=== PATIENT | female | born 1995 | race African-American/Black ===

== ENCOUNTER 2018-02-05 15:49 | Emergency (ER) | payer BC ==
[~2018-02-05] VITALS: Ht 152.4 cm; Wt 57.7 kg
[~2018-02-05 15:49] MED LIST: FOCALIN XR5 MG PO; FOCALIN5 MG PO; HYDROCODON-ACE1 EAC7 PO
[2018-02-05 15:53] VITALS: Ht 152.4 cm; Wt 57.7 kg
[2018-02-05 16:34] LABS: APPEARANCE HAZY (CLEAR); BILIRUBIN NEGATIVE (NEGATIVE); COLOR YELLOW (YELLOW); GLUCOSE NEGATIVE (NEGATIVE); HCG URINE POSITIVE (NEGATIVE); KETONE NEGATIVE (NEGATIVE); NITRITE NEGATIVE (NEGATIVE); PH 7.5 (5.0-6.0); PROTEIN NEGATIVE (NEGATIVE); SPECIFIC GRAVITY 1.015 (1.005-1.020); UROBILINOGEN NORMAL (NORMAL)
[2018-02-05 16:43] LABS: AMORPHOUS SEDIMENT >1+ /lpf (NONE SEEN); BACTERIA FEW /hpf (NONE SEEN); EPITHELIAL CELLS OCC /hpf (0-5); GRANULAR CAST OCC /lpf (NONE SEEN); HYALINE CAST OCC /lpf (NONE SEEN); MUCUS >1+ /lpf (NONE SEEN); RED CELLS - URINE 0-5 /hpf (0-5); WHITE CELLS - URINE 0-5 /hpf (0-5)
[2018-02-05 17:25] LABS: BASOPHILS 0.1 % (0-2); EOSINOPHILS 1.2 % (0-7); HEMATOCRIT 32.5 % (36.0-48.0); HEMOGLOBIN 10.7 g/dL (12-16); IMMATURE GRANULOCYTES 0.1 % (0-5); LYMPHOCYTES 29.5 % (15-50); MCH 26.5 pg (26.0-34.0); MCHC 32.9 g/dL (31.0-37.0); MCV 80.4 fL (80.0-100.0); MEAN PLATELET VOLUME 11.4 fL (7.4-10.4); MONOCYTES 5.5 % (2-11); NEUTROPHILS 63.6 % (40-80); RBC 4.04 10x6/uL (4.00-5.40); WBC 6.7 10x3/uL (4.8-10.8)
[2018-02-05 17:26] LABS: PLATELET COUNT 212 10x3/uL (130-400)
[2018-02-05 17:52] LABS: ALBUMIN 2.6 g/dL (3.4-5.0); ALKALINE PHOSPHATASE 42 U/L (46-116); ALT (SGPT) 11 U/L (10-68); CALC OSMOLALITY 270 mosm/kg (275-300); CARBON DIOXIDE 26.8 mmol/L (21.0-32.0); CHLORIDE - SERUM 106 mmol/L (98-107); CREATININE - SERUM 0.6 mg/dL (0.6-1.3); POTASSIUM - SERUM 3.9 mmol/L (3.5-5.1); PROTEIN - SERUM 5.6 g/dL (6.4-8.2); SODIUM 138 mmol/L (136-145); UREA NITROGEN 4 mg/dL (7-18); eGFR NON AFRICAN AMERICAN > 90 mL/min (90-120)
[2018-02-05 18:01] LABS: GLUCOSE 70 mg/dL (74-106)
[2018-02-05 18:15] LABS: HCG - QUANTITATIVE (MATERNAL) 4641 mIU/mL
[2018-02-05 18:28] VITALS: BP 128/60
== END 2018-02-05 18:29 | disposition home or self-care (01) ==
LOC: D.ER 15:49
PROVIDERS: Family Medicine
DX: O26.892 Other specified pregnancy related conditions, second trimester (principal); Z3A.17 17 weeks gestation of pregnancy; R10.9 Unspecified abdominal pain

== ENCOUNTER 2019-10-28 02:51 | Observation (INO) | payer MEDICAID ==
[2019-10-28] VITALS (9 sets, daily range): BP systolic 93–122; BP diastolic 54–879; Ht 152.4 cm; Wt 54.5 kg
[~2019-10-28] VITALS: Ht 152.4 cm; Wt 54.5 kg
[2019-10-28 03:08] LABS: BASOPHILS 0.1 % (0-2); EOSINOPHILS 1.5 % (0-7); HEMOGLOBIN 12.3 g/dL (12-16); IMMATURE GRANULOCYTES 0.1 % (0-5); LYMPHOCYTES 55.4 % (15-50); MCH 26.3 pg (26.0-34.0); MCHC 32.4 g/dL (31.0-37.0); MCV 81.4 fL (80.0-100.0); MEAN PLATELET VOLUME 11.3 fL (7.4-10.4); MONOCYTES 8.9 % (2-11); PLATELET COUNT 255 10x3/uL (130-400); RBC 4.67 10x6/uL (4.00-5.40); RDW 15.5 % (11.5-14.5); WBC 7.2 10x3/uL (4.8-10.8)
[2019-10-28 03:17] LABS: CALC OSMOLALITY 271 mosm/kg (275-300); CALCIUM 9.1 mg/dL (8.5-10.1); CARBON DIOXIDE 23.7 mmol/L (21.0-32.0); CHLORIDE - SERUM 105 mmol/L (98-107); CREATININE - SERUM 0.9 mg/dL (0.6-1.3); GLUCOSE 92 mg/dL (74-106); POTASSIUM - SERUM 3.3 mmol/L (3.5-5.1); SODIUM 137 mmol/L (136-145); UREA NITROGEN 7 mg/dL (7-18); eGFR NON AFRICAN AMERICAN 83 mL/min (90-120)
[2019-10-28 03:22] LABS: BILIRUBIN NEGATIVE (NEGATIVE); GLUCOSE NEGATIVE (NEGATIVE); KETONE NEGATIVE (NEGATIVE); NITRITE NEGATIVE (NEGATIVE); SPECIFIC GRAVITY 1.005 (1.005-1.020); UROBILINOGEN NORMAL (NORMAL)
[2019-10-28 03:23] LABS: HCG URINE NEGATIVE (NEGATIVE)
[2019-10-28 03:44] LABS: ALBUMIN 4.2 g/dL (3.4-5.0); ALKALINE PHOSPHATASE 74 U/L (30-120); ALT (SGPT) 17 U/L (10-68); BILIRUBIN - TOTAL 0.35 mg/dL (0.2-1.3); CREATINE KINASE 281 UL (21-215); LIPASE 98 U/L (73-393); MAGNESIUM - SERUM 2.2 mg/dL (1.8-2.4); PRO BNP 25 pg/mL (0-125); PROTEIN - SERUM 7.8 g/dL (6.4-8.2); THYROID STIMULATING HORMONE 2.71 uIU/mL (0.36-3.74)
[2019-10-28 03:46] LABS: UDS - AMPHET NEGATIVE QUAL (NEGATIVE); UDS - BARB NEGATIVE QUAL (NEGATIVE); UDS - BENZO NEGATIVE QUAL (NEGATIVE); UDS - COCAINE NEGATIVE QUAL (NEGATIVE); UDS - OPIATE NEGATIVE QUAL (NEGATIVE); UDS - PCP NEGATIVE QUAL (NEGATIVE); UDS - THC POSITIVE QUAL (NEGATIVE)
[2019-10-28 03:47] LABS: CKMB 1.4 U/L (0.0-3.6)
--- NOTE | 2019-10-28 07:17 | NUR ---
PT AROUSES TO VOICE. SPEECH IS SLURRED AT THIS TIME. PT UNABLE TO PROVIDE INFORMATION ON WHO TO CONTACT AT THIS TIME. COLOR WNL, RESPIRATIONS ARE EVEN AND UNLABORED. VSS. PT BEING MONITORED BY PULSE OX, BP, AND CARDIAC MONITORING. WILL CONTINUE TO MONITOR.
--- NOTE | 2019-10-28 07:35 | NUR ---
PT MOTHER AT BEDSIDE AT THIS TIME. AKUA JOYCE SPEAKING WITH MOTHER. PT REPORTS SHE IS HAVING SOB AND HAS BEEN HAVING THE SAME X2 WEEKS. PT REPORTS THAT SHE HAS BEEN TO THE [facility] FOR SAME. DENIES HX OF SOB
--- NOTE | 2019-10-28 07:54 | NUR ---
PT SHEETS CHANGED AT THIS TIME. MOTHER AT BEDSIDE. PT PROVIDED WITH WARM BLANKET. CXR PERFORMED AT THIS TIME.
--- NOTE | 2019-10-28 08:18 | NUR ---
PT ASSISTED ON BEDPAN.
--- NOTE | 2019-10-28 09:08 | NUR ---
RECEIVED REPORT FROM WILIAM IN ED, PATIENT TO UNIT SOON.
--- NOTE | 2019-10-28 09:28 | NUR ---
PATIENT ARRIVED TO UNIT VIA STRETCHER FROM ED AT THIS TIME. PATIENT WITH EYES CLOSED, ABLE TO AROUSE WITH VERBAL STIMULI AND LIGHT TOUCH, HOWEVER PATIENT BECOMES AGGITATED. CALL LIGHT PLACED WITHIN REACH. UNABLE TO OBTAIN NEEDED INFORMATION AT THIS TIME FROM PATIENT FOR ADMISSION PURPOSES PAPERWORK. SR UP FOR SAFETY. IV FLUIDS INFUSING ORDERED. SOILED PERSONAL CLOTHES IN PERSONALS BAG AT BEDSIDE. HOUSESUPERVISOR AND ED NURSE HAVE TAKEN PATIENTS EARRINGS TO BE LOCKED UP AT THIS TIME TO PREVENT LOSS OF PERSONAL ITEM. NO DISTRESS.
--- NOTE | 2019-10-28 09:55 | NUR ---
EARRINGS GIVEN TO MOTHER. WILIAM FROM ER WAS A WITNESS TO THIS INCIDENT.
--- NOTE | 2019-10-28 10:03 | NUR ---
PATIENT MOTHER AT BEDSIDE. THIS IS PATIENTS ONE VISITOR FOR 24 HOUR PERIOD. PATIENT MAY HAVE DIFFERENT VISITOR AT 2400.
[2019-10-28] MEDS ORDERED: ACETAMINOPHEN325 MG PO (12:10)
--- NOTE | 2019-10-28 13:42 | NUR ---
PATIENT LYING ON LEFT LATERAL SIDE, RESTING WELL. PATIENT MOM IN CHAIR AT BEDSIDE. NO DISTRESS. CALL LIGHT WITHIN REACH.
--- NOTE | 2019-10-28 15:16 | NUR ---
THIS COMPLIANCE OFFICER HAD TWO FAILED ATTEMPTS AT IV PLACEMENT TO LEFT ARM. CHINO SOLOMON ATTEMPTING TO PLACE IV AT THIS TIME. 20 GAUGE TO RIGHT AC, UNABLE TO FLUSH AND CAUSING DISCOMFORT TO PATIENT.
--- NOTE | 2019-10-28 15:31 | NUR ---
NEHA RN UNSUCESSFUL TO PLACE IV AT THIS TIME.
--- NOTE | 2019-10-28 15:31 | NUR ---
22 GAUGE IV PLACED TO LEFT WRIST BY CHINO BOTELLO. TAPED, DATED AND SECURED. PATIENT TOLERATED IV PLACEMENT WELL. IV FLUIDS INFUSING ORDERED.
--- NOTE | 2019-10-28 15:52 | NUR ---
PATIENT COMPLAIN OF BEING THIRSTY. PATIENT CONSUMED 8OZ APPLE JUICE AT THIS TIME. TOLERATED ORAL FLUIDS WELL. PATIENTS MOM REMAINS AT BEDSIDE.
--- NOTE | 2019-10-28 17:01 | NUR ---
RESTING ON LEFT LATERAL SIDE, NS INFUSING ORDERED. NO DISTRESS.
--- NOTE | 2019-10-28 20:17 | NUR ---
RECIEVED BEDSIDE SHIFT REPORT. ALERT AND ORIENTED X4 AT THIS TIME. UP WITH ASSIST. STATES SHE IS UNABLE TO RECALL WHAT HAPPEN TO HER.MOTHER AT BEDSIDE. DENIES ANY NEEDS AT THIS TIME.
[2019-10-29 00:30] VITALS: BP 113/61
[2019-10-29 04:30] VITALS: BP 107/66
[2019-10-29 05:57] LABS: HEMATOCRIT 32.5 % (36.0-48.0); HEMOGLOBIN 10.3 g/dL (12-16); MCH 26.1 pg (26.0-34.0); MCHC 31.7 g/dL (31.0-37.0); MCV 82.5 fL (80.0-100.0); MEAN PLATELET VOLUME 11.7 fL (7.4-10.4); PLATELET COUNT 177 10x3/uL (130-400); RBC 3.94 10x6/uL (4.00-5.40); RDW 15.8 % (11.5-14.5); WBC 6.4 10x3/uL (4.8-10.8)
[2019-10-29 06:02] LABS: ALKALINE PHOSPHATASE 61 U/L (30-120); ALT (SGPT) 16 U/L (10-68); BILIRUBIN - TOTAL 0.51 mg/dL (0.2-1.3); CALCIUM 7.6 mg/dL (8.5-10.1); CARBON DIOXIDE 21.3 mmol/L (21.0-32.0); CHLORIDE - SERUM 108 mmol/L (98-107); CREATININE - SERUM 0.7 mg/dL (0.6-1.3); POTASSIUM - SERUM 3.2 mmol/L (3.5-5.1); PROTEIN - SERUM 5.9 g/dL (6.4-8.2); SODIUM 138 mmol/L (136-145); eGFR NON AFRICAN AMERICAN > 90 mL/min (90-120)
[2019-10-29 06:05] LABS: ALBUMIN 3.1 g/dL (3.4-5.0); CALC OSMOLALITY 270 mosm/kg (275-300); GLUCOSE 69 mg/dL (74-106); UREA NITROGEN 5 mg/dL (7-18)
--- NOTE | 2019-10-29 07:20 | NUR ---
RECIEVE REPORT. ALERT AND ORIENTED X4. RESTING IN BED. DENIES ANY NEEDS. CONTINUE PLAN OF CARE AND SAFETY PRECAUTIONS.
[2019-10-29 09:53] LABS: ANISOCYTOSIS OCC; EOSINOPHILS 2 % (0-7); HYPOCHROMASIA OCC; LYMPHOCYTES 43 % (15-50); MONOCYTES 11 % (2-11); NEUTROPHILS 44 % (40-80); PLATELET ESTIMATE NORMAL
[2019-10-29 10:41] VITALS: BP 109/45
--- NOTE | 2019-10-29 14:39 | NUR ---
ALERT AND ORIENTED X4. DISCHARGE INSTRUCTIONS GIVEN VERBALLY AND WRITTEN. DISCHARGE PAPERS SIGNED ON CHART. DC RT AC IV TIP INTACT. DC LT HAND IV TIP INTACT. ESCORT TO RIDE VIA WHEELCHAIR. REMAINS FREE FROM INJURY.
--- NOTE | 2019-10-29 16:34 | MORECARE ---
CASE MANAGEMENT DISCHARGE SUMMARY PATIENT: SHELBY TIRADO UNIT: [id number] ADM DATE: 10/28/19 AGE: 24 : [birth year] SEX: F ROOM/BED: D.2108 AUTHOR: BROCK DEMPSEY PHYSICIAN: REFERRING PHYSICIAN: ALISON SALMON MD DATE OF SERVICE: 10/29/19 Discharge Plan Patient Name: SHELBY TIRADO Facility: [facility]:[place] : 1995 Planned Disposition: Anticipated Discharge Date: Discharge Date: 10/29/2019 Expected LOS: 0 Initial Reviewer: [email or web address] Initial Review Date: 10/29/2019 Generated: 10/29/19 5:33 pm Patient Name: SHELBY TIRADO Page [id number] at 1634 All edits/amendments must be made on the electronic document DICTATION DATE: 10/29/19 1633 PRINCIPAL ADMINISTRATIVE CLERK: NANCY 10/29/19 1633 RPT#: [id number] DC DATE:10/29/19 STATUS: DIS IN [facility] [address] [place] [address] END OF REPORT
== END 2019-10-29 14:44 | disposition home or self-care (01) ==
LOC: D.ER 02:51 → D.M2 08:52 → OBSVTIME 08:52 → D.M2 08:52
PROVIDERS: Family Medicine; ADMIT Emergency Medicine; ATTEND Emergency Medicine
DX: G93.41 Metabolic encephalopathy (principal); F10.129 Alcohol abuse with intoxication, unspecified; E87.6 Hypokalemia; F12.90 Cannabis use, unspecified, uncomplicated; R45.1 Restlessness and agitation